=== PATIENT | female | born 1930 | race Caucasian/White ===

== ENCOUNTER 2017-08-27 09:39 | Day surgery (SDC) | payer OTHER ==
[~2017-08-27] VITALS: Ht 152.4 cm; Wt 96.4 kg
[~2017-08-27 09:39] MED LIST: 0.9% SODIUM CHLORIDE 10 ML SYRINGE IVP PRN; DICLOFENAC SODIUM 0.1% 2.5 ML OPHTHALMIC SOLUTION OD ONE; MOXIFLOXACIN HCL 0.5% 3 ML OPHTHALMIC SOLUTION OD ONE; RINGERS SOLUTION,LACTATED 500 ML IV ONE
[2017-08-27] MEDS ORDERED: MOXIFLOXACIN HCL 0.5% 3 ML OPHTHALMIC SOLUTION ONE (09:56)
[2017-08-27] MEDS ORDERED: TROPICAMIDE 1% 2 ML OPHTHALMIC SOLUTION ONE (09:56)
[2017-08-27] MEDS ORDERED: PHENYLEPHRINE HCL 2.5% 2 ML OPHTHALMIC SOLUTION ONE (09:56)
[2017-08-27] MEDS ORDERED: DICLOFENAC SODIUM 0.1% 2.5 ML OPHTHALMIC SOLUTION ONE (09:56)
[2017-08-27] MEDS ORDERED: RINGERS SOLUTION,LACTATED 500 ML IV ONE (09:56)
[2017-08-27] MEDS: PHENYLEPHRINE HCL 2.5% 2 ML OPHTHALMIC SOLUTION OD SCH ×2 (10:40→10:49)
[2017-08-27] MEDS: TROPICAMIDE 1% 2 ML OPHTHALMIC SOLUTION OD SCH ×2 (10:40→10:49)
[2017-08-27] MEDS ORDERED: ATOR10TA84 PO (11:23)
[2017-08-27] MEDS ORDERED: ASPI81TA33 PO (11:23)
[2017-08-27] MEDS ORDERED: METO25XL PO (11:23)
[2017-08-27] MEDS ORDERED: ACET-2902 PO (11:23)
[2017-08-27] MEDS ORDERED: LEVE750T10 PO (11:23)
[2017-08-27] MEDS ORDERED: LISI2.5T2 PO (11:23)
[2017-08-27] MEDS ORDERED: GABA-531 PO (11:23)
[2017-08-27] MEDS ORDERED: OXCA300T PO (11:23)
[2017-08-27] MEDS ORDERED: SERT50TA12 PO (11:23)
[2017-08-27] MEDS ORDERED: OMEP20 PO (11:23)
[2017-08-27] MEDS ORDERED: GABA-529 PO (11:23)
[2017-08-27] MEDS ORDERED: LEVO75 PO (11:23)
[2017-08-27] MEDS ORDERED: FentaNYL CITRATE-PF 100 MCG/2 ML VIAL IVP ONE (12:00)
[2017-08-27] MEDS ORDERED: TETRACAINE HCL VISCOUS 0.5% 0.6 ML OPHTHALMIC SOLUTION OD ONE (12:00)
[2017-08-27] MEDS ORDERED: HYALURONATE SODIUM 12 MG/ML 0.8 ML SYRINGE IO ONE (12:00)
[2017-08-27] MEDS ORDERED: DEXAMETHASONE SOD PHOS 4 MG/ML VIAL IVP ONE (12:00)
[2017-08-27] MEDS ORDERED: EPINEPHrine 1:1,000 [1 MG/ML] AMP IM ONE (12:00)
[2017-08-27] MEDS ORDERED: LIDOCAINE HCL/PF 1% 2 ML VIAL INJ ONE (12:00)
[2017-08-27] MEDS ORDERED: VANCOMYCIN HCL 500 MG/VIAL TP ONE (12:00)
[2017-08-27] MEDS ORDERED: POVIDONE-IODINE 10% 15 ML SOLUTION UD TP ONE (12:00)
[2017-08-27] MEDS ORDERED: MIDAZOLAM HCL 2 MG/2 ML VIAL IVP ONE (12:00)
[2017-08-27] MEDS ORDERED: HYALURONATE SOD/CHONDROITIN SOD 0.5 ML VIAL IO ONE (12:00)
== END 2017-08-27 13:25 | disposition short-term general hospital (02) ==
LOC: SURGERY 09:39
PROVIDERS: ATTEND Specialist
DX: H25.011 Cortical age-related cataract, right eye (principal); E78.00 Pure hypercholesterolemia, unspecified; M19.90 Unspecified osteoarthritis, unspecified site; I11.9 Hypertensive heart disease without heart failure; I25.10 Atherosclerotic heart disease of native coronary artery without angina pectoris; E66.01 Morbid (severe) obesity due to excess calories; I49.9 Cardiac arrhythmia, unspecified; Z95.0 Presence of cardiac pacemaker; Z98.890 Other specified postprocedural states; Z68.41 Body mass index [BMI] 40.0-44.9, adult
CPT/HCPCS: 66984; 93005; C1780; J2250; J3010; J7120; J0171; J1100; J3370; J3490